=== PATIENT | female | born 1945 | race Caucasian/White ===

== ENCOUNTER → 2016-07-26 | Day surgery (SDC) | payer MEDICARE, OTHER ==
[~2016-07-26] MED LIST: BIESTROGEN PO; BONE MEAL PO; BOTOX INJECTIONS; CO Q 10; ENZYMES; ESTRATEST TABLE1 TAB PO; ESTRIOL; ESTROGEN/PROGESTERON PO; FISH OIL 1,2001 EAC2 PO; FISH OIL PO; IBUPROFEN600 MG PO; METOPROLOL SUCC25 MG PO; MINERAL; MULTI-DAY VITA1 EACH; PANTOPRAZOLE SO40 MG PO; PROBIOTIC1 EACH PO; PROGESTERONE CR; PROMETRIUM100 MG PO; TESTOSTERONE; VIT C PO; VIT E PO; VITAL-D RX TABL1 TAB PO; VITAM PO; [UNRECOGNIZED DRUG - OTHER]; [UNRECOGNIZED DRUG - OTHER]; [UNRECOGNIZED DRUG - OTHER]; [UNRECOGNIZED DRUG - OTHER]; [UNRECOGNIZED DRUG - OTHER] EXT; [UNRECOGNIZED DRUG - OTHER] PO; [UNRECOGNIZED DRUG - REMARK]
--- NOTE | ~2016-07-26 | OR ---
Unit #: [id number] #: [id number] Patient: FRANKIE MONCADA [id number] [address] [place], [place] [address] [id number] MR#: [id number] NAME: FRANKIE MONCADA ROOM: Date of Procedure: 07/26/2016 Admission Date: 07/26/2016 Surgeon: David Fleming M.D. : 1945 Attending Physician: David Fleming M.D. Primary Care Physician: Parrish Felton D.O. OPERATIVE REPORT PREOPERATIVE DIAGNOSIS Dysphagia. PROCEDURES PERFORMED Upper gastrointestinal endoscopy and biopsy as well as upper gastrointestinal endoscopy with dilation. POSTOPERATIVE DIAGNOSES 1. The patient had distal esophageal ring. This was felt to be nonobstructing, but was dilated using a 60-Irish Cervantes dilator. 2. The patient had mild prepyloric antral erosive gastritis. 3. Rest of examination up to third part of duodenum was normal. A biopsy was obtained from the antrum for CLOtest. RECOMMENDATIONS The patient will be started on pantoprazole 40 mg p.o. daily. She will be followed up in the office in 10 to 12 weeks' time. SEDATION USED MAC. DESCRIPTION OF PROCEDURE Following detailed explanation of the potential risks and complications of an upper endoscopy, namely perforation, bleeding, and complication related to sedation, the patient was brought to GI lab and laid in the left lateral decubitus position. Lubricated tip of the Olympus video upper endoscope was passed through the bite block into the proximal esophagus under direct vision. The entire esophageal mucosa was examined. The patient was noted to have distal esophageal mucosal ring. This was felt to be wide. This was felt to be nonobstructing. No esophagitis was seen. The scope was then advanced into the gastric cavity and the latter was insufflated. Mucosa of the fundus, body, and antrum was examined and mild prepyloric antral erythema erosions noted indicating antral gastritis. Pylorus was intubated with visualization of the normal duodenal bulb and second and third part of the duodenum. Upon withdrawal and retroflexion; incisura, cardia, and greater curve was examined and a biopsy was obtained from the antrum for CLOtest. The scope was then withdrawn in the distal esophagus. The entire esophageal mucosa was examined all the way up to pharynx. No additional findings were noted. A 60-Irish Cervantes dilator was introduced through the oral cavity and advanced into the esophagus. Relook endoscopy did not show any major Unit #: [id number] #: [id number] Patient: FRANKIE MONCADA mucosal tear. In fact, there was minimal tear in the area of the GE junction near the ring. Excellent hemostasis was achieved. The scope was then withdrawn all the way up to pharynx. No additional findings were noted. The patient tolerated the procedure without any postprocedure complications. Dictated by... Salomon Hernadez/jonas TD: 07/26/2016 13:24 JOB #: [id number] OPERATIVE REPORT Page 1 of 1 X David Fleming MD X PROCEDURE OPERATIVE NOTE
== END | disposition home or self-care (01) ==
LOC: COPS 07:20
DX: K22.2 Esophageal obstruction (principal); K29.60 Other gastritis without bleeding; M19.90 Unspecified osteoarthritis, unspecified site; M41.9 Scoliosis, unspecified; D64.9 Anemia, unspecified; I10 Essential (primary) hypertension; J44.9 Chronic obstructive pulmonary disease, unspecified; Z90.710 Acquired absence of both cervix and uterus; Z98.890 Other specified postprocedural states; Z90.721 Acquired absence of ovaries, unilateral; Z79.899 Other long term (current) drug therapy
CPT/HCPCS: 87077